=== PATIENT | female | born 1935 | race Caucasian/White ===

== ENCOUNTER 2021-09-01 11:14 | Emergency (ER) | payer OTHER, MEDICARE ==
[2021-09-01 11:23] VITALS: TEMP 97.4; BMI 20.9
[2021-09-01 12:40] VITALS: BP 152/79; PULSE 78
== END 2021-09-01 12:25 | disposition home or self-care (01) ==
LOC: FER 11:14
DX: F41.9 Anxiety disorder, unspecified (principal)
CPT/HCPCS: 99281-25

== ENCOUNTER 2021-09-09 11:22 | Emergency (ER) | payer OTHER, MEDICARE ==
[2021-09-09 11:33] VITALS: BP 141/58; PULSE 77; TEMP 97.6; BMI 20.7
[2021-09-09 13:58] LABS: BLOOD UREA NITROGEN 12.3 mg/dL (7-18); CALCIUM 9.6 mg/dL (8.5-10.1); MAGNESIUM 2.3 mg/dL (1.8-2.4)
[2021-09-09 14:01] LABS: CREATININE 0.4 mg/dL (0.55-1.3)
[2021-09-09 14:03] LABS: BILIRUBIN,TOTAL 0.4 mg/dL (0.2-1); TOT PROT 6.4 g/dl (6.4-8.2)
[2021-09-09 14:17] LABS: BASO % 0.4 % (0-2.0); EOS % 0.3 % (0-4.5); HEMOGLOBIN 14.4 GM/dL (10.7-15.3); LYMPH % 15.6 % (8-40); MCH 30.9 pg (25.7-33.7); MCHC 35.1 g/dl (32.0-36.0); MEAN CELL VOLUME 87.9 fl (80-96); MONO % 8.4 % (3.8-10.2); NEUT % 75.3 % (42.8-82.8); PLATELET COUNT 362 10^3/uL (134-434); RBC 4.67 M/mm3 (3.60-5.2); RDW 13.5 % (11.6-15.6); WHITE BLOOD COUNT 7.7 K/mm3 (4.0-10.0)
[2021-09-09 14:18] LABS: MEAN PLT VOLUME 5.8 fl (7.5-11.1)
[2021-09-09 14:33] LABS: ALBUMIN 3.9 g/dl (3.4-5.0)
== END 2021-09-09 15:34 | disposition home or self-care (01) ==
LOC: FER 11:22
DX: R53.81 Other malaise (principal)
CPT/HCPCS: 36415; 80053; 81003; 83735; 84443; 85025; 87086; 99283-25

== ENCOUNTER 2021-10-23 20:11 | Emergency (ER) | payer OTHER, MEDICARE ==
[2021-10-23] MEDS ORDERED: DIPHTH,PERTUSS(ACELL),TET 0.5 ML DISP.SYRIN IM ONE ×2 (20:15→20:18)
[2021-10-23 20:37] VITALS: BP 168/70; PULSE 80; TEMP 97.7; BMI 20.7
== END 2021-10-23 22:23 | disposition home or self-care (01) ==
LOC: FER 20:11
PROC: 3E0234Z Introduction of Serum, Toxoid and Vaccine into Muscle, Percutaneous Approach (ICD-10-PCS; principal; 2021-10-23)
DX: S60.221A Contusion of right hand, initial encounter (principal); S80.811A Abrasion, right lower leg, initial encounter; W10.8XXA Fall (on) (from) other stairs and steps, initial encounter
CPT/HCPCS: 70450-TC; 73130-TC-RT-FY; 90471; 90715; 99284-25

== ENCOUNTER 2022-07-07 13:30 | Emergency (ER) | payer OTHER, MEDICARE ==
[2022-07-07 14:01] VITALS: BP 158/70; PULSE 77; RESP 20; TEMP 97.8; BMI 23.9
[2022-07-07] MEDS ORDERED: DIPHTH,PERTUSS(ACELL),TET 0.5 ML DISP.SYRIN IM ONE ×2 (15:56→16:37)
== END 2022-07-07 16:51 | disposition home or self-care (01) ==
LOC: FER 13:30
PROC: 3E0234Z Introduction of Serum, Toxoid and Vaccine into Muscle, Percutaneous Approach (ICD-10-PCS; principal; 2022-07-07)
DX: S01.112A Laceration without foreign body of left eyelid and periocular area, initial encounter (principal); W01.0XXA Fall on same level from slipping, tripping and stumbling without subsequent striking against object, initial encounter
CPT/HCPCS: 70450-TC; 90471; 90715; 99284-25

== ENCOUNTER 2022-12-05 10:05 | Emergency (ER) | payer OTHER, MEDICARE ==
[2022-12-05 10:19] VITALS: BP 159/71; PULSE 76; RESP 16; TEMP 98.1; BMI 21.0
[2022-12-05] MEDS ORDERED: LIDOCAINE 5% TOPICAL PATCH ONE (10:45)
[2022-12-05] MEDS ORDERED: LIDOCAINE 5% TOPICAL PATCH TP ONE (10:45)
[2022-12-05] MEDS ORDERED: LIDOCAINE PATCH REMOVAL MC SCH (22:00)
== END 2022-12-05 11:21 | disposition home or self-care (01) ==
LOC: FER 10:05
DX: M54.50 Low back pain, unspecified (principal)
CPT/HCPCS: 99282-25

== ENCOUNTER 2022-12-09 09:26 | Inpatient (IN) | payer OTHER, MEDICARE ==
[2022-12-09 10:11] LABS: BASO % 0.4 % (0-2.0); EOS % 0.9 % (0-4.5); HEMATOCRIT 47.3 % (32.4-45.2); HEMOGLOBIN 16.7 GM/dL (10.7-15.3); LYMPH % 19.1 % (8-40); MCHC 35.3 g/dl (32.0-36.0); MEAN CELL VOLUME 87.8 fl (80-96); MONO % 10.2 % (3.8-10.2); NEUT % 69.4 % (42.8-82.8); PLATELET COUNT 342 10^3/uL (134-434); RBC 5.39 M/mm3 (3.60-5.2); RDW 13.7 % (11.6-15.6); WHITE BLOOD COUNT 5.3 K/mm3 (4.0-10.0)
[2022-12-09 10:23] LABS: CALCIUM 10.6 mg/dL (8.5-10.1)
[2022-12-09 10:24] LABS: ALBUMIN 4.4 g/dl (3.4-5.0); BLOOD UREA NITROGEN 11.6 mg/dL (7-18)
[2022-12-09 10:27] LABS: CREATININE 0.6 mg/dL (0.55-1.3)
[2022-12-09 10:28] LABS: BILIRUBIN,TOTAL 0.7 mg/dL (0.2-1); TOT PROT 7.7 g/dl (6.4-8.2)
[2022-12-09] MEDS ORDERED: ACETAMINOPHEN 1000 MG/100 ML BAG IVPB ONE (11:02)
[2022-12-09] MEDS ORDERED: ACETAMINOPHEN INJECTION 100 ML IVPB ONE (11:24)
[2022-12-09] MEDS: ACETAMINOPHEN 325 MG TABLET (FP) PO SCH ×2 (15:56→18:05)
[2022-12-09] MEDS ORDERED: LISINOPRIL 5 MG TABLET PO ONE (18:08)
[2022-12-09] MEDS: POLYETHYLENE GLYCOL (HEALTHYLAX) 3350 17 GM PACKET PO SCH (18:44)
[2022-12-10] MEDS: ACETAMINOPHEN 325 MG TABLET (FP) PO SCH ×5 (05:06→23:45)
[2022-12-10] MEDS ORDERED: methylPREDNISolone 8 MG TABLET PO ONE (08:44)
[2022-12-10 09:42] LABS: HEMATOCRIT 42.7 % (32.4-45.2); HEMOGLOBIN 14.9 GM/dL (10.7-15.3); MCH 30.9 pg (25.7-33.7); MCHC 34.9 g/dl (32.0-36.0); MEAN CELL VOLUME 88.5 fl (80-96); PLATELET COUNT 343 10^3/uL (134-434); RBC 4.82 M/mm3 (3.60-5.2); RDW 13.5 % (11.6-15.6); WHITE BLOOD COUNT 6.6 K/mm3 (4.0-10.0)
[2022-12-10] MEDS ORDERED: CYCLOBENZAPRINE HCL 5 MG TABLET PO SCH (10:00)
[2022-12-10] MEDS ORDERED: methylPREDNISolone 4 MG TABLET PO ONE (10:00)
[2022-12-10 10:03] LABS: POTASSIUM 4.3 mmol/L (3.5-5.1)
[2022-12-10 10:07] LABS: CALCIUM 9.6 mg/dL (8.5-10.1)
[2022-12-10 10:11] LABS: CREATININE 0.7 mg/dL (0.55-1.3)
[2022-12-10] MEDS: HYDROCHLOROTHIAZIDE 12.5 MG CAPSULE (FP) PO SCH (10:29)
[2022-12-10] MEDS: amLODIPine BESYLATE 10 MG TABLET (FP) PO SCH (10:29)
[2022-12-10] MEDS: LACTATED RINGERS SOLUTION 1,000 ML/1,000 ML INFUS.BAG IV SCH (10:30)
[2022-12-10] MEDS: ENOXAPARIN NA (PORCINE) 40 MG/0.4 ML DISP.SYRIN SQ SCH (10:30)
[2022-12-10] MEDS: LISINOPRIL 10 MG TABLET PO SCH (10:30)
[2022-12-10] MEDS: POLYETHYLENE GLYCOL (HEALTHYLAX) 3350 17 GM PACKET PO SCH (10:30)
[2022-12-10 19:17] VITALS: RESP 18
[2022-12-10] MEDS: CYCLOBENZAPRINE HCL 5 MG TABLET PO SCH (22:00)
[2022-12-11] MEDS: ACETAMINOPHEN 325 MG TABLET (FP) PO SCH ×4 (05:24→23:57)
[2022-12-11] MEDS ORDERED: methylPREDNISolone 4 MG TABLET PO ONE (10:00)
[2022-12-11 10:44] LABS: BASO % 0.6 % (0-2.0); EOS % 0.6 % (0-4.5); HEMATOCRIT 41.9 % (32.4-45.2); HEMOGLOBIN 14.5 GM/dL (10.7-15.3); LYMPH % 17.5 % (8-40); MCH 30.8 pg (25.7-33.7); MCHC 34.5 g/dl (32.0-36.0); MEAN CELL VOLUME 89.1 fl (80-96); MEAN PLT VOLUME 6.5 fl (7.5-11.1); MONO % 9.5 % (3.8-10.2); NEUT % 71.8 % (42.8-82.8); PLATELET COUNT 303 10^3/uL (134-434); RDW 13.8 % (11.6-15.6); WHITE BLOOD COUNT 7.1 K/mm3 (4.0-10.0)
[2022-12-11 10:53] LABS: POTASSIUM 3.8 mmol/L (3.5-5.1)
[2022-12-11 10:55] LABS: BLOOD UREA NITROGEN 10.2 mg/dL (7-18); CALCIUM 9.6 mg/dL (8.5-10.1)
[2022-12-11 10:56] LABS: MAGNESIUM 1.9 mg/dL (1.8-2.4)
[2022-12-11] MEDS: LACTATED RINGERS SOLUTION 1,000 ML/1,000 ML INFUS.BAG IV SCH (10:57)
[2022-12-11 10:59] LABS: CREATININE 0.6 mg/dL (0.55-1.3); PHOSPHOROUS 3.7 mg/dL (2.5-4.9)
[2022-12-11 11:00] LABS: BILIRUBIN,TOTAL 0.5 mg/dL (0.2-1); TOT PROT 5.9 g/dl (6.4-8.2)
[2022-12-11] MEDS: HYDROCHLOROTHIAZIDE 12.5 MG CAPSULE (FP) PO SCH (11:00)
[2022-12-11] MEDS: ENOXAPARIN NA (PORCINE) 40 MG/0.4 ML DISP.SYRIN SQ SCH (11:00)
[2022-12-11] MEDS: POLYETHYLENE GLYCOL (HEALTHYLAX) 3350 17 GM PACKET PO SCH (11:00)
[2022-12-11 11:01] LABS: ALBUMIN 3.4 g/dl (3.4-5.0)
[2022-12-11] MEDS: LISINOPRIL 10 MG TABLET PO SCH (11:01)
[2022-12-11] MEDS: amLODIPine BESYLATE 10 MG TABLET (FP) PO SCH (11:02)
[2022-12-11] MEDS: PANTOPRAZOLE 40 MG TABLET PO SCH (12:49)
[2022-12-11 16:23] VITALS: BMI 19.0
[2022-12-11] MEDS: CYCLOBENZAPRINE HCL 5 MG TABLET PO SCH (21:07)
[2022-12-12] MEDS: ACETAMINOPHEN 325 MG TABLET (FP) PO SCH ×3 (05:44→17:15)
[2022-12-12 09:46] LABS: HEMATOCRIT 42.7 % (32.4-45.2); HEMOGLOBIN 14.7 GM/dL (10.7-15.3); MCH 30.9 pg (25.7-33.7); MCHC 34.5 g/dl (32.0-36.0); MEAN CELL VOLUME 89.5 fl (80-96); MEAN PLT VOLUME 6.5 fl (7.5-11.1); PLATELET COUNT 314 10^3/uL (134-434); RBC 4.77 M/mm3 (3.60-5.2); RDW 14.1 % (11.6-15.6)
[2022-12-12] MEDS ORDERED: methylPREDNISolone 4 MG TABLET PO ONE (10:00)
[2022-12-12] MEDS ORDERED: MULTIVITAMINS (DAILY MVI) TABLET (FP) PO SCH (10:00)
[2022-12-12 10:03] LABS: POTASSIUM 3.6 mmol/L (3.5-5.1)
[2022-12-12] MEDS: LISINOPRIL 10 MG TABLET PO SCH (10:06)
[2022-12-12] MEDS: amLODIPine BESYLATE 10 MG TABLET (FP) PO SCH (10:07)
[2022-12-12] MEDS: HYDROCHLOROTHIAZIDE 12.5 MG CAPSULE (FP) PO SCH (10:07)
[2022-12-12] MEDS: PANTOPRAZOLE 40 MG TABLET PO SCH (10:07)
[2022-12-12 10:08] LABS: CALCIUM 9.7 mg/dL (8.5-10.1)
[2022-12-12] MEDS: ENOXAPARIN NA (PORCINE) 40 MG/0.4 ML DISP.SYRIN SQ SCH (10:08)
[2022-12-12] MEDS: POLYETHYLENE GLYCOL (HEALTHYLAX) 3350 17 GM PACKET PO SCH (10:08)
[2022-12-12 10:09] LABS: BLOOD UREA NITROGEN 13.2 mg/dL (7-18)
[2022-12-12 10:12] LABS: CREATININE 0.6 mg/dL (0.55-1.3)
[2022-12-12 15:45] VITALS: BP 156/61; PULSE 78; TEMP 98.3
[2022-12-13] MEDS ORDERED: methylPREDNISolone 4 MG TABLET PO ONE (10:00)
[2022-12-14] MEDS ORDERED: methylPREDNISolone 4 MG TABLET PO ONE (10:00)
[2022-12-15] MEDS ORDERED: methylPREDNISolone 4 MG TABLET PO ONE (10:00)
== END 2022-12-12 18:03 | disposition home or self-care (01) | DRG 552 ==
LOC: JER 09:26 → JERBED 11:20 → J5S 14:45 → OBSVTOIN 12-11 12:39
PROVIDERS: ADMIT Student in an Organized Health Care Education/Training Program; ATTEND Student in an Organized Health Care Education/Training Program
DX: M54.50 Low back pain, unspecified (principal); E87.1 Hypo-osmolality and hyponatremia; I10 Essential (primary) hypertension; E78.5 Hyperlipidemia, unspecified
CPT/HCPCS: 36415; 72100-TC-FY; 80048; 80053; 82962; 83735; 84100; 85025; 85027; 93005; 93010; 97116-GP; 97161-GP; 99285-25; G0378

== ENCOUNTER 2024-02-28 13:28 | Inpatient (IN) | payer OTHER, MEDICARE ==
[2024-02-28 14:02] LABS: INR 0.98 (0.83-1.09); PROTHROMBIN TIME (PATIENT) 11.2 SEC (9.7-13.0)
[2024-02-28 14:05] LABS: ACTIVATED PTT 32.1 SECONDS (25.2-36.5)
[2024-02-28 14:13] LABS: HEMOGLOBIN 16.2 G/dL (10.7-15.3); MCH 30.7 pg (25.7-33.7); MEAN CELL VOLUME 93.1 fl (80-96); PLATELET COUNT 292.6 10^3/uL (134-434); RBC 5.26 10^6/uL (3.60-5.2); RDW 15.7 % (11.6-15.6); WHITE BLOOD COUNT 14.5 10^3/uL (4.0-10.8)
[2024-02-28 14:19] LABS: ALBUMIN 4.4 g/dl (3.4-5.0); BILIRUBIN,TOTAL 0.8 mg/dl (0.2-1); CALCIUM 10.6 mg/dl (8.5-10.1); CREATININE 0.5 mg/dl (0.6-1.3); POTASSIUM 4.4 mmol/L (3.5-5.1); TOT PROT 6.7 g/dl (6.4-8.2)
[2024-02-28] MEDS: SODIUM CHLORIDE 1,000 ML IV ONE (14:40)
[2024-02-28 15:23] LABS: PLATELET ESTIMATE ADEQUATE
[2024-02-28] MEDS ORDERED: ASPIRIN 81 MG CHEWABLE TABLETS ONE (15:23)
[2024-02-28] MEDS: ASPIRIN 81 MG CHEWABLE TABLETS PO ONE (15:25)
[2024-02-28] MEDS ORDERED: amLODIPine BESYLATE 5 MG TABLET (FP) ONE (16:28)
[2024-02-28] MEDS: amLODIPine BESYLATE 5 MG TABLET (FP) PO ONE ×2 (17:00→17:12)
[2024-02-28 18:42] VITALS: BMI 19.3
[2024-02-29 02:01] VITALS: RESP 18
[2024-02-29] MEDS: amLODIPine BESYLATE 10 MG TABLET (FP) PO SCH (09:34)
[2024-02-29] MEDS ORDERED: HYDROCHLOROTHIAZIDE 12.5 MG CAPSULE (FP) PO SCH (10:00)
[2024-02-29] MEDS ORDERED: LISINOPRIL 10 MG TABLET PO SCH (10:00)
[2024-02-29 10:26] LABS: HEMATOCRIT 46.3 % (32.4-45.2); HEMOGLOBIN 15.2 G/dL (10.7-15.3); MCH 30.2 pg (25.7-33.7); MCHC 32.8 g/dl (32.0-36.0); MEAN CELL VOLUME 92.3 fl (80-96); PLATELET COUNT 269.7 10^3/uL (134-434); RBC 5.02 10^6/uL (3.60-5.2); RDW 14.7 % (11.6-15.6); WHITE BLOOD COUNT 9.8 10^3/uL (4.0-10.8)
[2024-02-29 10:31] LABS: CALCIUM 9.6 mg/dl (8.5-10.1); CREATININE 0.5 mg/dl (0.6-1.3); POTASSIUM 4.5 mmol/L (3.5-5.1)
[2024-02-29 10:43] VITALS: BP 138/58; PULSE 80; TEMP 98.8
== END 2024-02-29 12:55 | disposition home or self-care (01) | DRG 640 ==
LOC: FER 13:28 → FM/S 16:48
PROVIDERS: ADMIT Internal Medicine; ATTEND Internal Medicine
DX: E87.1 Hypo-osmolality and hyponatremia (principal); G93.41 Metabolic encephalopathy; E86.0 Dehydration; I10 Essential (primary) hypertension; E78.5 Hyperlipidemia, unspecified; F03.90 Unspecified dementia, unspecified severity, without behavioral disturbance, psychotic disturbance, mood disturbance, and anxiety; E83.52 Hypercalcemia; T50.2X5A Adverse effect of carbonic-anhydrase inhibitors, benzothiadiazides and other diuretics, initial encounter
CPT/HCPCS: 36415; 70450-TC; 71045-TC-FY; 80048; 80053; 81003; 81015; 82962; 83735; 84484; 85027; 85610; 85730; 86850; 86900; 86901; 93005; 97116-GP; 97162-GP; 99291

== ENCOUNTER 2024-03-23 19:05 | Inpatient (IN) | payer OTHER, MEDICARE ==
[2024-03-23] MEDS ORDERED: LISINOPRIL 10 MG TABLET ONE (19:39)
[2024-03-23] MEDS: LISINOPRIL 20 MG TABLET PO ONE (19:53)
[2024-03-23 20:19] LABS: HEMATOCRIT 45.4 % (32.4-45.2); HEMOGLOBIN 14.8 G/dL (10.7-15.3); MCH 31.2 pg (25.7-33.7); MCHC 32.6 g/dl (32.0-36.0); MEAN CELL VOLUME 95.7 fl (80-96); MEAN PLT VOLUME 6.6 fl (7.5-11.1); PLATELET COUNT 256.6 10^3/uL (134-434); RBC 4.74 10^6/uL (3.60-5.2); RDW 15.1 % (11.6-15.6); WHITE BLOOD COUNT 7.9 10^3/uL (4.0-10.8)
[2024-03-23 20:21] LABS: INR 1.05 (0.83-1.09)
[2024-03-23 21:06] LABS: PLATELET ESTIMATE ADEQUATE
[2024-03-23 21:26] LABS: BILIRUBIN,TOTAL 0.6 mg/dl (0.2-1); CALCIUM 9.4 mg/dl (8.5-10.1); CREATININE 0.6 mg/dl (0.6-1.3)
[2024-03-23] MEDS ORDERED: THIAMINE HCL 200 MG/2 ML VIAL ONE (21:29)
[2024-03-23] MEDS ORDERED: FOLIC ACID 5 MG/1 ML ONE (21:29)
[2024-03-23] MEDS ORDERED: MULTIVIT INJ. ADULT COMBO WITH VIT K 1 COMBO 10 ML VIAL IV ONE (21:30)
[2024-03-23 21:32] LABS: EPITHELIAL CELLS 0-5 /hpf
[2024-03-23] MEDS: FOLIC ACID INJECTION - 1 MG, THIAMINE HCL 100 MG, MULTIVIT INJECTION ADULT 10 ML in SOD... IVPB ONE (21:37)
[2024-03-24 02:18] VITALS: RESP 18
[2024-03-24 02:49] VITALS: BMI 19.5
[2024-03-24 09:27] LABS: CALCIUM 9.6 mg/dl (8.5-10.1); CREATININE 0.5 mg/dl (0.6-1.3); MAGNESIUM 2.1 mg/dL (1.8-2.4); PHOSPHOROUS 3.6 (2.5-4.9); POTASSIUM 4.2 mmol/L (3.5-5.1)
[2024-03-24] MEDS ORDERED: LISINOPRIL 10 MG TABLET PO SCH (10:00)
[2024-03-24 10:16] LABS: BASO % 0.6 % (0-2.0); EOS % 0.9 % (0-4.5); HEMATOCRIT 41.4 % (32.4-45.2); HEMOGLOBIN 14.2 GM/dL (10.7-15.3); LYMPH % 19.7 % (8-40); MCH 31.3 pg (25.7-33.7); MCHC 34.2 g/dl (32.0-36.0); MEAN CELL VOLUME 91.6 fl (80-96); MEAN PLT VOLUME 6.5 fl (7.5-11.1); MONO % 11.4 % (3.8-10.2); NEUT % 67.4 % (42.8-82.8); PLATELET COUNT 327 10^3/uL (134-434); RBC 4.52 M/mm3 (3.60-5.2); RDW 14.2 % (11.6-15.6); WHITE BLOOD COUNT 6.8 K/mm3 (4.0-10.0)
[2024-03-24 14:33] VITALS: BP 150/51; PULSE 67; TEMP 99.1
[2024-03-24] MEDS ORDERED: ASPIRIN COATED 81 MG TABLET.EC PO SCH (22:00)
== END 2024-03-24 16:09 | disposition home or self-care (01) | DRG 641 ==
LOC: FER 19:05 → FM/S 21:35 → OBSVTOIN 03-24 10:47
PROVIDERS: ADMIT Internal Medicine
DX: E87.1 Hypo-osmolality and hyponatremia (principal); T50.2X5A Adverse effect of carbonic-anhydrase inhibitors, benzothiadiazides and other diuretics, initial encounter; Y92.89 Other specified places as the place of occurrence of the external cause; I10 Essential (primary) hypertension; E78.5 Hyperlipidemia, unspecified; R41.3 Other amnesia; F03.90 Unspecified dementia, unspecified severity, without behavioral disturbance, psychotic disturbance, mood disturbance, and anxiety
CPT/HCPCS: 36415; 70450-TC; 71045-TC-FY; 80048; 80053; 81003; 81015; 83735; 83930; 83935; 84100; 84300; 85025; 85610; 87086; 93005; 97116-GP; 97162-GP; 99285-25; G0378

== ENCOUNTER 2024-04-18 17:32 | Observation (INO) | payer OTHER, MEDICARE ==
[2024-04-18] MEDS ORDERED: LISINOPRIL 10 MG TABLET ONE (18:29)
[2024-04-18] MEDS: LISINOPRIL 10 MG TABLET PO ONE (18:35)
[2024-04-18 19:11] LABS: HEMATOCRIT 48.6 % (32.4-45.2); HEMOGLOBIN 16.2 G/dL (10.7-15.3); MCHC 33.4 g/dl (32.0-36.0); MEAN CELL VOLUME 95.8 fl (80-96); MEAN PLT VOLUME 6.9 fl (7.5-11.1); PLATELET COUNT 283.3 10^3/uL (134-434); RBC 5.07 10^6/uL (3.60-5.2); RDW 15.2 % (11.6-15.6)
[2024-04-18 19:29] LABS: ALBUMIN 4.6 g/dl (3.4-5.0); BILIRUBIN,TOTAL 0.5 mg/dl (0.2-1); CALCIUM 10.1 mg/dl (8.5-10.1); CREATININE 0.5 mg/dl (0.6-1.3); MAGNESIUM 2.1 mg/dL (1.8-2.4); PHOSPHOROUS 3.5 (2.5-4.9)
[2024-04-18 19:32] LABS: PLATELET ESTIMATE ADEQUATE; POTASSIUM 4.9 mmol/L (3.5-5.1)
[2024-04-18] MEDS ORDERED: ACETAMINOPHEN 325 MG TABLET (FP) PO PRN (21:07)
[2024-04-18] MEDS ORDERED: DOCUSATE SODIUM 100 MG CAPSULE (FP) PO PRN (21:07)
[2024-04-18 21:44] VITALS: BMI 19.6
[2024-04-18 22:00] VITALS: RESP 18
[2024-04-19 08:47] LABS: HEMATOCRIT 42.7 % (32.4-45.2); HEMOGLOBIN 14.1 G/dL (10.7-15.3); MCH 31.5 pg (25.7-33.7); MEAN CELL VOLUME 95.3 fl (80-96); PLATELET COUNT 274.6 10^3/uL (134-434); RBC 4.48 10^6/uL (3.60-5.2); RDW 14.7 % (11.6-15.6); WHITE BLOOD COUNT 6.3 10^3/uL (4.0-10.8)
[2024-04-19 09:08] VITALS: TEMP 98.2
[2024-04-19 09:15] LABS: CALCIUM 9.5 mg/dl (8.5-10.1); CREATININE 0.5 mg/dl (0.6-1.3); POTASSIUM 4.4 mmol/L (3.5-5.1)
[2024-04-19] MEDS: LISINOPRIL 10 MG TABLET PO SCH (09:33)
[2024-04-19 15:23] VITALS: BP 115/64; PULSE 67
[2024-04-19] MEDS ORDERED: ASPIRIN COATED 81 MG TABLET.EC PO SCH (22:00)
[2024-04-19] MEDS ORDERED: ATORVASTATIN CA 10 MG TABLET (FP) PO SCH (22:00)
== END 2024-04-19 15:23 | disposition home or self-care (01) ==
LOC: FER 17:32 → FM/S 20:06
PROVIDERS: ADMIT Internal Medicine
DX: R79.89 Other specified abnormal findings of blood chemistry (principal); I10 Essential (primary) hypertension; E87.1 Hypo-osmolality and hyponatremia; E78.5 Hyperlipidemia, unspecified; G89.29 Other chronic pain; M54.9 Dorsalgia, unspecified; M19.90 Unspecified osteoarthritis, unspecified site; K21.9 Gastro-esophageal reflux disease without esophagitis; F03.90 Unspecified dementia, unspecified severity, without behavioral disturbance, psychotic disturbance, mood disturbance, and anxiety; Z88.0 Allergy status to penicillin
CPT/HCPCS: 0241U-QW; 36415; 70450-TC; 71046-TC-FY; 80048; 80053; 81003; 81015; 83735; 84100; 84484; 85025; 85027; 87086; 93005; 99285-25; G0378

== ENCOUNTER 2024-06-21 14:10 | Inpatient (IN) | payer OTHER, MEDICARE ==
[2024-06-21 15:30] LABS: HEMATOCRIT 38.9 % (32.4-45.2); HEMOGLOBIN 13.5 G/dL (10.7-15.3); MCH 31.5 pg (25.7-33.7); MCHC 34.6 g/dl (32.0-36.0); MEAN CELL VOLUME 91.2 fl (80-96); MEAN PLT VOLUME 7.7 fl (7.5-11.1); PLATELET COUNT 200.6 10^3/uL (134-434); RBC 4.27 10^6/uL (3.60-5.2); RDW 14.2 % (11.6-15.6); WHITE BLOOD COUNT 3.9 10^3/uL (4.0-10.8)
[2024-06-21 15:41] LABS: ALBUMIN 3.9 g/dl (3.4-5.0); ALK PHOS 97 U/L (45-117); ANION GAP 9 mmol/L (4-13); BILIRUBIN,TOTAL 0.4 mg/dl (0.2-1); CHLORIDE 97 mmol/L (98-107); CO2 22 mmol/L (21-32); CREATININE 0.4 mg/dl (0.6-1.3); GLUCOSE,RANDOM 100 mg/dl (74-106); POTASSIUM 4.6 mmol/L (3.5-5.1); SGOT/AST 30 U/L (15-37); SGPT/ALT 20 U/L (7-52); SODIUM 128 mmol/L (136-145)
[2024-06-21 15:54] LABS: PLATELET ESTIMATE ADEQUATE
[2024-06-21] MEDS: SODIUM CHLORIDE 500 ML IV STA (17:05)
[2024-06-21] MEDS ORDERED: OSELTAMIVIR PHOSPHATE 75 MG CAPSULE ONE (18:17)
[2024-06-21] MEDS ORDERED: ACETAMINOPHEN 325 MG TABLET (FP) ONE (18:17)
[2024-06-21] MEDS: OSELTAMIVIR PHOSPHATE 75 MG CAPSULE PO ONE (18:22)
[2024-06-21] MEDS: ACETAMINOPHEN 325 MG TABLET (FP) PO ONE (18:22)
[2024-06-21 19:58] VITALS: BMI 19.4
[2024-06-22 08:09] LABS: MCHC 34.2 g/dl (32.0-36.0); MEAN CELL VOLUME 90.6 fl (80-96); MEAN PLT VOLUME 7.2 fl (7.5-11.1); PLATELET COUNT 192.2 10^3/uL (134-434); RBC 4.19 10^6/uL (3.60-5.2); RDW 13.3 % (11.6-15.6); WHITE BLOOD COUNT 7.6 10^3/uL (4.0-10.8)
[2024-06-22 09:34] LABS: CALCIUM 8.6 mg/dl (8.5-10.1); CREATININE 0.5 mg/dl (0.6-1.3); POTASSIUM 4.2 mmol/L (3.5-5.1)
[2024-06-22 09:45] LABS: PLATELET ESTIMATE ADEQUATE
[2024-06-22] MEDS: ACETAMINOPHEN 325 MG TABLET (FP) PO PRN (09:49)
[2024-06-22] MEDS: OSELTAMIVIR PHOSPHATE 75 MG CAPSULE PO SCH (09:49)
[2024-06-22] MEDS: LISINOPRIL 10 MG TABLET PO SCH (09:51)
[2024-06-22] MEDS: amLODIPine BESYLATE 10 MG TABLET (FP) PO SCH (09:51)
[2024-06-22] MEDS ORDERED: amLODIPine BESYLATE 10 MG TABLET (FP) PO SCH (10:00)
[2024-06-22] MEDS ORDERED: LISINOPRIL 10 MG TABLET PO SCH (10:00)
[2024-06-22] MEDS: ASPIRIN COATED 81 MG TABLET.EC PO SCH (21:07)
[2024-06-22] MEDS: ATORVASTATIN CA 10 MG TABLET (FP) PO SCH (21:07)
[2024-06-23 08:29] LABS: CALCIUM 8.8 mg/dl (8.5-10.1); CREATININE 0.6 mg/dl (0.6-1.3); MAGNESIUM 1.9 mg/dL (1.8-2.4); PHOSPHOROUS 3.3 (2.5-4.9); POTASSIUM 4.3 mmol/L (3.5-5.1)
[2024-06-23] MEDS: ENOXAPARIN NA (PORCINE) 40 MG/0.4 ML DISP.SYRIN SQ SCH (09:30)
[2024-06-23 09:49] LABS: BASO % 0.6 % (0-2.0); EOS % 0.6 % (0-4.5); HEMATOCRIT 36.2 % (32.4-45.2); HEMOGLOBIN 12.4 GM/dL (10.7-15.3); LYMPH % 20.2 % (8-40); MCH 30.9 pg (25.7-33.7); MCHC 34.3 g/dl (32.0-36.0); MEAN CELL VOLUME 90.1 fl (80-96); MONO % 10.4 % (3.8-10.2); NEUT % 68.2 % (42.8-82.8); PLATELET COUNT 217 10^3/uL (134-434); RBC 4.02 M/mm3 (3.60-5.2); RDW 13.4 % (11.6-15.6); WHITE BLOOD COUNT 6.9 K/mm3 (4.0-10.0)
[2024-06-23] MEDS: OSELTAMIVIR PHOSPHATE 30 MG CAPSULE PO SCH (21:17)
[2024-06-24 08:59] LABS: CALCIUM 8.8 mg/dl (8.5-10.1); CREATININE 0.5 mg/dl (0.6-1.3); POTASSIUM 4.1 mmol/L (3.5-5.1)
[2024-06-24 09:38] LABS: BASO % 0.5 % (0-2.0); EOS % 0.9 % (0-4.5); HEMOGLOBIN 12.5 GM/dL (10.7-15.3); LYMPH % 15.4 % (8-40); MCH 31.2 pg (25.7-33.7); MCHC 34.8 g/dl (32.0-36.0); MEAN CELL VOLUME 89.9 fl (80-96); MONO % 11.2 % (3.8-10.2); PLATELET COUNT 246 10^3/uL (134-434); RBC 4.01 M/mm3 (3.60-5.2); RDW 13.4 % (11.6-15.6); WHITE BLOOD COUNT 6.4 K/mm3 (4.0-10.0)
[2024-06-25 22:15] VITALS: RESP 18
[2024-06-26 14:42] VITALS: BP 132/62; PULSE 79; TEMP 98.1
== END 2024-06-26 16:19 | disposition home or self-care (01) | DRG 194 ==
LOC: FER 14:10 → OBSVTOIN 17:30 → FM/S 17:30
PROVIDERS: ADMIT Internal Medicine
DX: J10.1 Influenza due to other identified influenza virus with other respiratory manifestations (principal); E87.1 Hypo-osmolality and hyponatremia; E78.5 Hyperlipidemia, unspecified; F41.9 Anxiety disorder, unspecified; I10 Essential (primary) hypertension
CPT/HCPCS: 0241U-QW; 36415; 71046-TC-FY; 80048; 80053; 81003; 81015; 83735; 84100; 84484; 85025; 85027; 87635; 97116-GP; 97161-GP; 99285-25